=== PATIENT | male | born 1955 | race Caucasian/White ===

== ENCOUNTER 2017-07-15 22:43 | Emergency (ER) | payer OTHER ==
[~2017-07-15] VITALS: Ht 172.7 cm; Wt 93.0 kg
[2017-07-15 23:08] LABS: ABSOLUTE BASOPHILS 0.1 thou/uL (0.0-0.2); ABSOLUTE LYMPHOCYTES 3.8 thou/uL (0.8-5.3); ABSOLUTE MONOCYTES 0.6 thou/uL (0.0-1.2); ABSOLUTE NEUTROPHILS 7.7 thou/uL (1.6-8.1); BASOPHILS 0.5 %; EOSINOPHILS 0.4 %; HEMATOCRIT 41.3 % (42.0-52.0); HEMOGLOBIN 14.2 gm/dL (14.0-18.0); MCH 31.4 pg (26.0-34.0); MCHC 34.5 g/dL (28.0-37.0); MCV 91.1 fL (80.0-100.0); MONOCYTES 5.1 %; MPV 6.5 fl. (7.2-11.1); NUCLEATED RBCS 0 /100WBC; PLATELET COUNT* 268 thou/uL (150-400); RBC 4.53 mil/uL (4.50-6.00); RDW-CV 13.9 % (10.5-14.5); WBC 12.1 thou/uL (4.0-11.0)
[2017-07-15] MEDS ORDERED: EDARBYCLOR 40-1 EAC1 (23:10)
[2017-07-15] MEDS ORDERED: OMEPRAZOLE40 MG (23:11)
[2017-07-15] MEDS ORDERED: LIPITOR80 MG (23:11)
[2017-07-15] MEDS ORDERED: DEXAMETHASONE 22 M1 (23:12)
[2017-07-15] MEDS ORDERED: ZETIA10 MG (23:12)
[2017-07-15] MEDS ORDERED: KEPPRA 500 MG500 M1 PO (23:13)
[2017-07-15 23:21] LABS: APTT 23.1 Seconds (25.0-31.3); PROTIME 9.8 Seconds (9.20-11.50)
[2017-07-15 23:26] LABS: ANION GAP 11 mmol/L (7-16); BUN 14 mg/dL (7-18); CALCIUM 9.1 mg/dL (8.5-10.1); CHLORIDE 95 mmol/L (98-107); CO2 27 mmol/L (21-32); CREATININE 0.7 mg/dL (0.6-1.3); GLUCOSE 109 mg/dL (70-99); POTASSIUM 3.4 mmol/L (3.5-5.1); SODIUM 133 mmol/L (136-145)
[2017-07-15 23:32] LABS: ALBUMIN 4.2 g/dL (3.4-5.0); ALKALINE PHOSPHATASE 55 U/L (46-116); CHOLESTEROL 159 mg/dL (<200); HDL CHOLESTEROL 64 mg/dL (>40); LDL CHOLESTEROL 67 mg/dL (<100); SGOT 21 U/L (15-37); SGPT 64 U/L (30-65); TC:HDL 2.5 Ratio (Not establshd); TOTAL BILIRUBIN 0.6 mg/dL (<0.1-1.0); TOTAL PROTEIN 7.4 g/dL (6.4-8.2); TRIGLYCERIDE 144 mg/dL (<150); TROPONIN-I LEVEL <0.06 ng/mL (<0.06); VLDL 29 mg/dL (<40)
[2017-07-15 23:33] LABS: SERUM ASSESSMENT CLEAR
[2017-07-16 01:04] VITALS: BP 132/69
--- NOTE | 2017-07-16 15:21 | EKG ---
[place] [address] ELECTROCARDIOGRAM REPORT Name: LORETTA HAJI [id number] Admission: 07/15/17 Attend Phys: Discharge: 07/16/17 Date of : 55 Report #: [id number] THIS REPORT FOR: //name// [facility] ED Test Date: 2017-07-15 Test Time: 22:56:03 Pat Name: LORETTA HAJI Department: Room: Gender: Tool Maker Apprentice: GIA : 1955 Requested By: Michael Quezada Order Number: [id number] MD: Fabrizio Herron Measurements Intervals [place] Rate: 58 P: 33 MD: 193 QRS: -27 QRSD: 164 T: 119 QT: 462 QTc: 454 Interpretive Statements Sinus rhythm Left bundle branch block Baseline wander in lead(s) V3 No previous ECG available for comparison Electronically Signed On 07-16-2017 15:21:02 FIBER OPTICS SUPERVISOR by Fabrizio Herron [email or web address] <ELECTRONICALLY SIGNED> By: Fabrizio Herron MD, [facility] 07/16/17 1521 D: 02/2255 55 Fabrizio Herron MD, FACC /EPI
== END 2017-07-16 01:07 | disposition home or self-care (01) ==
LOC: M.ERS 22:43
PROVIDERS: Family Medicine
DX: F10.129 Alcohol abuse with intoxication, unspecified (principal); R55 Syncope and collapse; I10 Essential (primary) hypertension

== ENCOUNTER 2018-01-19 06:53 | Inpatient (IN) | payer OTHER ==
[~2018-01-19] VITALS: Ht 172.7 cm; Wt 89.8 kg
[~2018-01-19 06:53] MED LIST: DEXAMETHASONE 22 M1; EDARBYCLOR 40-1 EAC1; KEPPRA 500 MG500 M1 PO; LIPITOR80 MG; OMEPRAZOLE40 MG; ZETIA10 MG
[2018-01-19 06:54] VITALS: BP 143/104
[2018-01-19] MEDS ORDERED: VITAMIN B-12250 MCG PO (07:06)
[2018-01-19] MEDS ORDERED: FISH OIL 1,001000 M2 PO (07:07)
[2018-01-19] MEDS ORDERED: CENTRUM SILVER1 EAC4 PO (07:07)
[2018-01-19] MEDS ORDERED: COZAAR 25 MG TA25 M2 PO (07:12)
[2018-01-19] MEDS ORDERED: BIOTIN1000 MCG PO (07:12)
[2018-01-19] MEDS ORDERED: VIMPAT100 MG PO (07:12)
[2018-01-19] MEDS ORDERED: TEMOZOLOMIDE20 MG PO (07:13)
[2018-01-19] MEDS ORDERED: HYDROCHLOROTHIA25 M2 PO (07:13)
[2018-01-19] MEDS ORDERED: PREDNISONE 20 M20 M1 PO (07:13)
[2018-01-19] MEDS ORDERED: VITAMIN D5000 UNI1 PO (07:14)
[2018-01-19 07:23] LABS: ABSOLUTE BASOPHILS 0.1 thou/uL (0.0-0.2); ABSOLUTE EOSINOPHILS 0.1 thou/uL (0.0-0.7); ABSOLUTE LYMPHOCYTES 1.6 thou/uL (0.8-5.3); ABSOLUTE MONOCYTES 0.9 thou/uL (0.0-1.2); ABSOLUTE NEUTROPHILS 6.6 thou/uL (1.6-8.1); BASOPHILS 0.7 %; EOSINOPHILS 0.8 %; HEMATOCRIT 40.6 % (42.0-52.0); HEMOGLOBIN 14.6 gm/dL (14.0-18.0); LYMPHOCYTES 17.1 %; MCH 32.8 pg (26.0-34.0); MCV 91.3 fL (80.0-100.0); MONOCYTES 9.5 %; MPV 6.3 fl. (7.2-11.1); NUCLEATED RBCS 0 /100WBC; PLATELET COUNT* 241 thou/uL (150-400); POLYS 71.9 %; RBC 4.45 mil/uL (4.50-6.00); RDW-CV 14.1 % (10.5-14.5); WBC 9.2 thou/uL (4.0-11.0)
[2018-01-19 07:29] LABS: ANION GAP 5 mmol/L (7-16); BUN 14 mg/dL (7-18); CALCIUM 8.9 mg/dL (8.5-10.1); CHLORIDE 98 mmol/L (98-107); CO2 29 mmol/L (21-32); CREATININE 0.6 mg/dL (0.6-1.3); GLUCOSE 108 mg/dL (70-99); POTASSIUM 3.3 mmol/L (3.5-5.1); SODIUM 132 mmol/L (136-145)
[2018-01-19 07:39] LABS: ALBUMIN 3.1 g/dL (3.4-5.0); ALKALINE PHOSPHATASE 70 U/L (46-116); LIPASE 149 U/L (73-393); NT-PRO BRAIN NAT PEPTIDE 128 pg/mL (<300); SGOT 31 U/L (15-37); SGPT 77 U/L (30-65); TOTAL BILIRUBIN 0.6 mg/dL (<0.1-1.0); TOTAL PROTEIN 6.7 g/dL (6.4-8.2); TROPONIN-I LEVEL <0.06 ng/mL (<0.06)
[2018-01-19 07:41] LABS: APTT 28.5 Seconds (25.0-31.3); PROTIME 9.8 Seconds (9.20-11.50)
--- NOTE | 2018-01-19 09:53 | NUR ---
PT PROVIDED PT WITH DAILY AM HOME MEDS PER DR HAMILTON
[2018-01-19 10:47] VITALS: BP 144/101
[2018-01-19 11:00] VITALS: BP 153/87
[2018-01-19 12:38] VITALS: BP 119/77
[2018-01-19 16:00] VITALS: BP 114/82
[2018-01-19 17:54] LABS: POTASSIUM 3.8 mmol/L (3.5-5.1)
[2018-01-19 18:01] LABS: CALCIUM 8.7 mg/dL (8.5-10.1); CREATININE 0.7 mg/dL (0.6-1.3); MAGNESIUM 1.8 mg/dL (1.8-2.4)
--- NOTE | 2018-01-19 18:10 | NUR ---
PATIENT ARRIVED FROM ER THIS AM. PATIENT SETTLED TO ROOM, HISTORY, ASSESSMENT AND VITALS COMPLETED AND DOCUMENTED. PATIENT DENIES ANY PAIN AT THIS TIME. PATIENT HAS HEPARIN DRIP INFUSING FOR PE DIAGNOSIS. HEPARIN HELD FOR 1 HOUR AND RATE ADJUSTED PER SLIDING FOR PTT OF 140. REDRAW PTT AT 2330. PATIENT DENIES ANY SHORTNESS OF BREATH/TROUBLE BREATHING. PATIENT HAS GOOD APPETITE. CALL LIGHT WITHIN REACH. WILL CONTINUE TO MONITOR.
[2018-01-19 20:00] VITALS: BP 115/78
[2018-01-20 00:24] VITALS: BP 132/97
--- NOTE | 2018-01-20 01:18 | NUR ---
DOCTOR ANAIS NOTIFIED OF PATIENT'S PAIN WHEN TAKING DEEP BREATH, SEE ORDERS.
[2018-01-20 05:00] VITALS: BP 132/94
--- NOTE | 2018-01-20 06:05 | NUR ---
PATIENT TURNED Q [address] FALL PRE[address]UIONS IN PLACE, BED ALARM ON, CALL LIGHT WITH IN REACH, HOURLY ROUNDING OBSERVED. NO ACUTE CHANGES, PATIENT NOT SHOWING SIGNS OF DISTRESS.
[2018-01-20 08:45] VITALS: BP 131/82
--- NOTE | 2018-01-20 10:30 | NUR ---
ASSUMED CARE OF PT AFTER RECEIVING REPORT FROM NOC RN, PT IS ORIENTED TO SELF AND SITUATION, FORGETFUL. MATE RELIEF IN PLACE, SR. HEPARIN DRIP INFUSING ORDERED. PT C/O PAIN, GIVEN PRN MORPHINE ORDERED. ASSESSMENT COMPLETED, DOCUMENTED. MEDS PER JUL. FAMILY PRESENT IN ROOM. CALL LIGHT IN REACH.
--- NOTE | 2018-01-20 10:43 | EKG ---
[place] [address] ELECTROCARDIOGRAM REPORT Name: LORETTA HAJI Room: [address] IN M.R.#: [id number] Admission: 01/19/18 Attend Phys: Riky Bullard, Discharge: Date of : 55 Report #: [id number] THIS REPORT FOR: //name// [facility] ED Test Date: 2018-01-19 Test Time: 06:59:15 Pat Name: LORETTA HAJI Department: Room: [facility] Gender: M China Decorator: : 1955 Requested By: Gloria Freed Order Number: [id number] MD: Rashel Linares Measurements Intervals [place] Rate: 85 P: -4 MS: 178 QRS: -40 QRSD: 147 T: 127 QT: 394 QTc: 469 Interpretive Statements Sinus rhythm Left bundle branch block Compared to ECG 07/15/2017 22:56:03 No significant changes Electronically Signed On 01-20-2018 10:43:28 CDT by Rashel Linares [email or web address] <ELECTRONICALLY SIGNED> By: Rashel Linares MD, [facility] 01/20/18 [phone] Rashel Linares MD, [facility] /EPI
[2018-01-20 12:00] VITALS: BP 115/78
[2018-01-20 13:17] LABS: MAGNESIUM 1.6 mg/dL (1.8-2.4); POTASSIUM 3.6 mmol/L (3.5-5.1)
[2018-01-20 16:00] VITALS: BP 115/75
--- NOTE | 2018-01-20 18:50 | NUR ---
REC'D PHONE CALL FROM DR. FOLEY WHO STATES HE RECOMMENDS THAT THE PATIENT BE TRANSITIONED TO LOVENOX 1 MG/KG BID IF THE PATIENT'S CREATININE LEVELS WNL. DR. FOLEY STATES THAT IF THIS IS ACCEPTABLE TO THE HOSPITALIST TEAM, LOVENOX IS HIS RECOMMENDATION AND THAT TRANSITION CAN HAPPEN AT TIME OF DISCHARGE OR AT HOSPITALIST TEAM DISCRETION.
[2018-01-20 20:00] VITALS: BP 125/87
[2018-01-21] VITALS: BP 135/87
--- NOTE | 2018-01-21 03:14 | NUR ---
PT ALERT FORGETFUL. HEPARIN QTT RUNNING AT 890 UNITS/HR. NO PTT DONE 9/ AM. PTT ORDERED AND CHECKED WNL. NEXT PTT FOR THIS AM. AT BS INTERFERING WITH NURSING CARE. TELEMETRY SHOWS SR. TURN Q 2 HRS. WILL CONTINUE TO MONITOR.
[2018-01-21 04:39] VITALS: BP 141/87
[2018-01-21 04:52] LABS: ABSOLUTE EOSINOPHILS 0.1 thou/uL (0.0-0.7); ABSOLUTE LYMPHOCYTES 1.3 thou/uL (0.8-5.3); ABSOLUTE MONOCYTES 0.7 thou/uL (0.0-1.2); ABSOLUTE NEUTROPHILS 5.4 thou/uL (1.6-8.1); BASOPHILS 0.3 %; EOSINOPHILS 0.9 %; HEMOGLOBIN 12.7 gm/dL (14.0-18.0); LYMPHOCYTES 17.8 %; MCH 32.5 pg (26.0-34.0); MCHC 35.4 g/dL (28.0-37.0); MCV 91.8 fL (80.0-100.0); MONOCYTES 8.8 %; MPV 6.6 fl. (7.2-11.1); NUCLEATED RBCS 0 /100WBC; PLATELET COUNT* 245 thou/uL (150-400); POLYS 72.2 %; RBC 3.92 mil/uL (4.50-6.00); RDW-CV 14.2 % (10.5-14.5); WBC 7.4 thou/uL (4.0-11.0)
[2018-01-21 05:24] LABS: ALBUMIN 2.6 g/dL (3.4-5.0); CALCIUM 8.4 mg/dL (8.5-10.1); CREATININE 0.4 mg/dL (0.6-1.3); MAGNESIUM 1.9 mg/dL (1.8-2.4); PHOSPHORUS* 3.3 mg/dL (2.5-4.9); POTASSIUM 3.3 mmol/L (3.5-5.1); TOTAL BILIRUBIN 0.5 mg/dL (<0.1-1.0); TOTAL PROTEIN 5.5 g/dL (6.4-8.2)
--- NOTE | 2018-01-21 05:45 | NUR ---
AM PTT 45.0. HEPARIN QTT CHGD TO 10.5MLS/HR
[2018-01-21 11:54] VITALS: BP 126/82
--- NOTE | 2018-01-21 13:19 | 2DMMODE ---
[place] [address] 2 D/M-MODE ECHOCARDIOGRAM Name: LORETTA HAJI Room: [address] IN [facility]#: [id number] Admission: 01/19/18 Attend Phys: Riky Newman Discharge: Date of : 55 Date of Service: 01/21/18 1318 Report #: [id number] THIS REPORT FOR: //name// APPROVED REPORT Study performed: 01/21/2018 11:16:47 EXAM: Comprehensive 2D, Doppler, and color-flow Echocardiogram Patient Location: In-Patient Room #: [facility] Status: routine BSA: 1.95 HR: 71 bpm BP: 141/87 mmHg Rhythm: NSR Other Information Study Quality: Good Indications Pulmonary Embolism 2D Dimensions LVEF(%): 56.59 (>50%) IVSd: 15.55 (7-11mm) LVOT Diam: 20.94 (18-24mm) LVDd: 41.17 mm PWd: 12.84 (7-11mm) Ascending Ao: 33.23 (22-36mm) LVDs: 29.12 (25-40mm) Aortic Root: 36.26 mm Martinez's LVEF: 56.59 % Volumes Left Atrial Volume (Systole) LA ESV Index: 19.30 mL/m2 Aortic Valve AoV Peak Franco.: 1.42 m/s AO Peak Gr.: 8.11 mmHg LVOT Max P.78 mmHg AO Mean Gr.: 4.40 mmHg LVOT Mean P.28 mmHg LVOT Max V: 1.48 m/s AO V2 VTI: 21.16 cm LVOT Mean V: 0.94 m/s KAREN (VTI): 3.90 cm2 LVOT V1 VTI: 23.94 cm Mitral Valve E/A Ratio: 0.83 [place] [address] 2 D/M-MODE ECHOCARDIOGRAM Name: LORETTA HAJI Room: [address] IN .R.#: [id number] Admission: 01/19/18 Attend Phys: Riky Newman Discharge: Date of : 55 Date of Service: 01/21/18 1318 Report #: [id number] MV Decel. Time: 285.93 ms MV E Max Franco.: 0.47 m/s MV PHT: 82.92 ms MVA (PHT): 2.65 cm2 TDI E/Lateral E': 6.71 E/Medial E': 9.40 Medial E' Franco.: 0.05 m/s Lateral E' Franco.: 0.07 m/s Pulmonary Valve PV Peak Franco.: 1.04 m/s PV Peak Gr.: 4.34 mmHg Left Ventricle The left ventricle is normal size. There is normal LV segmental wall motion. Mild concentric left ventricular hypertrophy. Left ventricular systolic function is normal. The left ventricular ejection fraction is within the normal range. LVEF is 55-60%. Grade I - abnormal relaxation pattern. Right Ventricle The right ventricle is normal size. The right ventricular systolic function is normal. Atria The left atrium size is normal. The right atrium size is normal. Aortic Valve Mild aortic valve sclerosis. No aortic regurgitation is present. There is no aortic valvular stenosis. Mitral Valve The mitral valve is normal in structure. There is no mitral valve regurgitation noted. No evidence of mitral valve stenosis. Tricuspid Valve The tricuspid valve is normal in structure. Trace tricuspid regurgitation. Unable to assess PA pressure. Pulmonic Valve The pulmonary valve is normal in structure. Trace pulmonic regurgitation. Great Vessels The aortic root is normal in size. IVC [place] [address] 2 D/M-MODE ECHOCARDIOGRAM Name: LORETTA HAJI Room: [address]#: [id number] Admission: 01/19/18 Attend Phys: Riky Newman Discharge: Date of : 55 Date of Service: 01/21/18 1318 Report #: [id number] collapses with >50% inspiration Pericardium There is no pericardial effusion. <Conclusion> The left ventricle is normal size. Left ventricular systolic function is normal. The left ventricular ejection fraction is within the normal range. LVEF is 55-60%. Grade I - abnormal relaxation pattern. The right ventricle is normal size. The left atrium size is normal. Mild aortic valve sclerosis. No aortic regurgitation is present. There is no aortic valvular stenosis. The mitral valve is normal in structure. The tricuspid valve is normal in structure. IVC is normal in size and collapses with >50% inspiration There is no pericardial effusion. There is normal LV segmental wall motion. <ELECTRONICALLY SIGNED> By: Rashel Linares MD, FACC 01/21/18 1318 1318 Rashel Linares MD, FACC /INF
--- NOTE | 2018-01-21 16:52 | NUR ---
SW attempted to meet with pt, pt was busy at the time. Pt lives home with and also has a son. Pt follow with oncology at [facility] and pt nurse discussed pt will be on Lovenox. SW to continue to follow to complete assessment and assist with safe dc planning.
[2018-01-21 20:00] VITALS: BP 126/77
[2018-01-22] VITALS: BP 121/88
[2018-01-22 04:00] VITALS: BP 147/85
--- NOTE | 2018-01-22 05:11 | NUR ---
ASSUMED PT CARE AT 1930, AWAKE AND ALERT TO SELF ONLY. PT WAS VERY CONFUSED AND SCARED THIS SHIFT. PT DID NOT BELIEVE HE WAS IN THE HOSPITAL, HE THOUGHT IT WAS A JOKE HIS WAS PLAYING ON HIM. PT REFUSED TO TAKE MEDICATIONS BECAUSE HE THOUGHT I WAS TRYING TO POISON HIM, PT EVENTUALLY TOOK MEDICATIONS ONCE HIS SISTER ARRIVED. SHE HAD TO GIVE HIM THE MEDICATIONS INSTEAD OF THIS NURSE. PT DENIES ANY PAIN, STATES THAT HE DOES NOT WANT MORPHINE ANYMORE BECAUSE IT CONFUSES HIM. PT IS TRACING NSR ON THE MONITOR, ON 2L NC SATTING MID TO HIGH 90'S. BED IN LOW POSIRION, CALL LIGHT IN REACH, BED ALARM ON, YELLOW ARM BAND AND SOCKS IN PLACE.
[2018-01-22 08:26] LABS: ABSOLUTE EOSINOPHILS 0.1 thou/uL (0.0-0.7); ABSOLUTE LYMPHOCYTES 1.4 thou/uL (0.8-5.3); ABSOLUTE MONOCYTES 0.6 thou/uL (0.0-1.2); ABSOLUTE NEUTROPHILS 5.2 thou/uL (1.6-8.1); BASOPHILS 0.4 %; EOSINOPHILS 0.7 %; HEMATOCRIT 35.6 % (42.0-52.0); HEMOGLOBIN 12.8 gm/dL (14.0-18.0); LYMPHOCYTES 19.6 %; MCH 32.9 pg (26.0-34.0); MCHC 35.9 g/dL (28.0-37.0); MCV 91.5 fL (80.0-100.0); MONOCYTES 8.3 %; MPV 6.3 fl. (7.2-11.1); NUCLEATED RBCS 0 /100WBC; PLATELET COUNT* 279 thou/uL (150-400); RBC 3.89 mil/uL (4.50-6.00); RDW-CV 14.1 % (10.5-14.5); WBC 7.3 thou/uL (4.0-11.0)
[2018-01-22 08:47] LABS: ALBUMIN 2.4 g/dL (3.4-5.0); CALCIUM 8.8 mg/dL (8.5-10.1); CREATININE 0.4 mg/dL (0.6-1.3); POTASSIUM 3.7 mmol/L (3.5-5.1); TOTAL BILIRUBIN 0.4 mg/dL (<0.1-1.0); TOTAL PROTEIN 6.5 g/dL (6.4-8.2)
[2018-01-22 08:57] LABS: PREALBUMIN 14.6 mg/dL (18.0-35.7)
[2018-01-22 12:15] VITALS: BP 125/84
[2018-01-22 20:00] VITALS: BP 114/84
[2018-01-23] VITALS: BP 129/94
[2018-01-23 04:00] VITALS: BP 136/98
--- NOTE | 2018-01-23 05:18 | NUR ---
ASSUMED CARE OF PT AFTER REPORT AT 1930. PT A&O2-2 AND FORGETFUL. VSS. PHYSICAL ASSESSMENT COMPLETED AND CHARTED. PT ON O2 AT 2L WITH 94% O2 SAT. PT TRACING SR ON TELE. PT REPORTED UP WITH 2 ASSIST BUT REMAINS ON BED ALL NIGHT. DENIES ANY PAIN OR DISCOMFORT. TURNED EVERY 2 HOURS. HOURLY ROUNDING OBSERVED. CALL LIGHT WITHIN REACH. BED IN LOW POSITION.
--- NOTE | 2018-01-23 07:25 | NUR ---
CHANGE OF SHIFT BEDSIDE REPORT GIVEN PATIENT SEEN AT BEDSDIDE, IN BED ASLEEP ASSUMED PATIENT CARE
[2018-01-23 08:00] VITALS: BP 132/74
[2018-01-23 12:00] VITALS: BP 131/94
[2018-01-23] MEDS ORDERED: ENOXAPARIN80 MG/0.1 SUBQ (13:25)
[2018-01-23] MEDS ORDERED: OXYCODONE HCL 55 MG PO (13:34)
[2018-01-23 13:36] VITALS: BP 131/94
--- NOTE | 2018-01-23 13:44 | NUR ---
ORDERS NOTED FOR DC, ALSO DISCUSSED WITH DR PEREZ. THERAPY SAW PT AND MET WITH S/O JEIMY. HE WAS ABLE TO TRANSFER. MET WITH PT, DEJA AND PT'S SON/LORETTA TO DISCUSS DC PLAN. PT LIVES WITH JEIMY ON A [place]. HE IS FOLLOWED AT HOME BY [facility] FOR AND [facility]. THEY HAVE A W/C, WALKER AND BSC. JEIMY STATED THEY ARE TRYING TO GET A PLATFORM AT HOME FOR HIS WALKER BUT HH IS WORKING ON IT. CALLED IN SCRIPT FOR LOVENOX TO [facility] [address], NO [place]. THEY CAN FILL A PARTIAL SCRIPT TODAY AND SHOULD HAVE THE REST IN BY SAT. JEIMY STATED THAT THE NURSES HAD TAUGHT HER TO ADMINISTER AND SHE FEELS SHE CAN MANAGE. HH WILL F/U ALSO WITH HER. INSTRUCTED HER TO F/U WITH PT'S ONCOLOGIST FOR REFILLS NONE WERE WRITTEN AND PT WILL NEED TO CONTINUE IT FOR SOME TIME. AWAIT RT O2 SAT EVALS. CALLED AND FAXED DC ORDER TO [facility] AND [facility]. JEIMY AND SON STATED THEY COULD MANAGE GETTING PT HOME. DID VOICE CONCERN ABOUT MANAGING AT HOME BUT FELT THAT THEY HAD BEEN DOING IT PRIOR AND CAN CONTINUE TO MANAGE. DID GIVE JEIMY LIST OF SNF FACILITIES IN PT'S NETWORK IN CASE HE 'FAILS' AT HOME WITH HH. JEIMY AWARE THAT HH COULD ASSIST WITH THAT TRANSITION IF NEEDED.
--- NOTE | 2018-01-23 15:15 | NUR ---
PATIENT DISCHARGED TO HOME ALL DISCHARGE INFORMATION GIVEN AND ACKNOWLEDGED IV REMOVED AND HEART MONITOR REMOVED AND PERSONAL BELONGINGS RETURNED ASSISTED TO AND OUT VIA GOOD CONDITION TO HOME
--- NOTE | 2018-01-23 18:30 | NUR ---
PATIENTS HOME MEDICATION (TEMOZOLOMIDE) FOUND IN PATIENT ACCESS BIN MULTIPLE ATTEMPTS TO REACH CONTACT NUMBER ON CHART-NO ANSWER MEDICATION SENT TO PHARMACY AND NOTIFIED CHARGE NURSE
--- NOTE | 2018-01-24 09:21 | CON ---
[address] [address] CONSULTATION Name: LORETTA HAJI Room: [address] IN .R.#: [id number] Admission: 01/19/18 Attend Phys: Riky Bullard, Discharge: 01/23/18 Date of : 55 Report #: [id number] THIS REPORT FOR: //name// CC: Riky Magdaleno DATE OF SERVICE: 01/20/2018 REQUESTING PHYSICIAN: Hospitalist Service. INDICATION FOR CONSULTATION: Extensive pulmonary emboli with a history of a brain tumor. HISTORY OF PRESENT ILLNESS: This is a 62-year-old gentleman with past medical history as mentioned below. This does include a history of grade 4 glioblastoma for which he had surgery towards the beginning of this year. The tumor was reported to have involved the right parietal area. The patient is a lifetime nonsmoker. He has a history of alcohol intake in the past, but not recent. The patient is now admitted with chest pain. He says this started in the last 1-2 days. It was in the posterior aspect of his chest. He says that his back also hurts. This is associated with respiration and coughing. He reports this pain as being severe up to 10/10. He also reports being short of breath for the last 1-2 days as well. He at this time is fully awake; however, is providing only a limited history, does not report any increase in cough. His family reports that he does sit up when he is eating. There is no sputum production. There is no pain towards the front of his chest. There is no runny nose or sore throat. There has been a significant increase in swelling of left lower extremity over the last couple of weeks. He has had some cough pain on the left side as well. REVIEW OF SYSTEMS: The patient answers in the negative for 12 questions for review of systems except as mentioned above. 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 He has had surgery in May of this year for this, hypertension. The patient has been on seizure medications; it is not known to me as to whether this is prophylactic or whether he actually had seizures. The patient is noted to be on 15 mg of prednisone daily and on admission. SOCIAL HISTORY: Reported to have had a history of heavy alcohol intake in the past at some point. This, however, is not recent. The patient's family reports that he has not had any significant amount of alcohol this year. No known history of smoking. The patient is reported to be a lifetime nonsmoker. No known history [place] [address] CONSULTATION Name: LORETTA HAJI Room: [address]#: [id number] Admission: 01/19/18 Attend Phys: Riky Bullard, Discharge: 01/23/18 Date of : 55 Report #: [id number] CURRENT MEDICATIONS: List in [facility] reviewed. HOME MEDICATIONS: List also in [facility] reviewed. FAMILY HISTORY: There is no pertinent family history. PHYSICAL EXAMINATION: GENERAL: He is fully awake; however, provides only a limited history. VITAL SIGNS: He has a pulse of 72 and a blood pressure of 131/82. He is not on supplemental oxygen. He has been saturating in the high 90s, last recorded 97%; pulse 72, blood pressure 131/82, respiratory rate 18. Afebrile with a temperature of 37.1. He did have a low grade elevation in temperature up to 37.6 earlier today. HEENT: Head is normocephalic. There is a surgical scar on the right side. There is no throat erythema, narrow airway around Mallampati 4. NECK: Does not show raised JVP. CHEST: Clear to auscultation. HEART: Regular, no murmur. ABDOMEN: Soft, nontender. EXTREMITIES: Lower extremities show 2+ edema on the left side. There is no edema on the right side. There is calf tenderness on the left side. There are no significant skin changes noted. LABORATORY DATA: The patient's CTA chest, which does show extensive bilateral pulmonary emboli in [facility] reviewed. I reviewed both the films as well as the report. There are also bilateral infiltrates, more on the right side than the left noted, infiltrative changes do appear to be more than would be expected from atelectasis and scarring alone. The patient's CBC as well as chemistries performed yesterday in [facility] reviewed. Coagulation studies also in [facility] reviewed. ASSESSMENT AND PLAN: 1. Extensive bilateral pulmonary emboli/left calf swelling, likely the patient had a deep venous thrombosis in the left leg and this is the source of his pulmonary emboli. Anticoagulation is the most effective therapy for his pulmonary emboli; however, the patient is high risk for anticoagulation considering his history of an intracranial malignancy. The patient currently is on IV heparin. We will await further recommendations from the Neurology and Hematology Service who are on the case. We will also do venous Dopplers and check a 2D echo and then decide as to whether there is an indication to place an IVC filter. I would defer to the Hematology Service regarding whether hypercoagulability testing is performed. 2. Pulmonary infiltrates. These are more significant than I would expect from atelectasis and scarring alone. Therefore, I went ahead and ordered ceftriaxone as well as ordered a sputum culture and a nasal swab for methicillin-resistant Staphylococcus aureus. [address] [address] CONSULTATION Name: LORETTA HAJI Room: [address] IN .R.#: [id number] Admission: 01/19/18 Attend Phys: Riky Bullard, Discharge: 01/23/18 Date of : 55 Report #: [id number] 3. Chest pain. See discussion above. 4. Glioblastoma grade 4 in the right parietal region. Oncology and Neurology Services are on consult. 5. High aspiration risk. Recommend aspiration precautions. 6. Prednisone use upon admission. The patient may require stress doses of steroids in case his clinical condition deteriorates. <ELECTRONICALLY SIGNED> By: Wilbert Tsai MD 01/24/18 0921 1233 1522Abob Kam MD /nt
== END 2018-01-23 15:15 | disposition home health service (06) | DRG 177 ==
LOC: M.ERS 06:53 → M.2W 09:21 → M.TBA-ER 09:21 → M.2W 10:56
PROVIDERS: Internal Medicine; Internal Medicine Critical Care Medicine; Personal Emergency Response Attendant; ADMIT Family Medicine
DX: J15.6 Pneumonia due to other Gram-negative bacteria (principal); I26.99 Other pulmonary embolism without acute cor pulmonale; J96.01 Acute respiratory failure with hypoxia; G93.40 Encephalopathy, unspecified; I82.412 Acute embolism and thrombosis of left femoral vein; J98.11 Atelectasis; D68.59 Other primary thrombophilia; I82.432 Acute embolism and thrombosis of left popliteal vein; C71.3 Malignant neoplasm of parietal lobe; C71.2 Malignant neoplasm of temporal lobe; K59.00 Constipation, unspecified; G40.909 Epilepsy, unspecified, not intractable, without status epilepticus; I10 Essential (primary) hypertension; M54.9 Dorsalgia, unspecified; Z79.899 Other long term (current) drug therapy; Z82.49 Family history of ischemic heart disease and other diseases of the circulatory system

== ENCOUNTER 2018-05-14 17:31 | Emergency (ER) | payer OTHER ==
[~2018-05-14] VITALS: Ht 167.6 cm; Wt 77.1 kg
[~2018-05-14 17:31] MED LIST changes: +BIOTIN1000 MCG PO; +CENTRUM SILVER1 EAC4 PO; +COZAAR 25 MG TA25 M2 PO; +ENOXAPARIN80 MG/0.1 SUBQ; +FISH OIL 1,001000 M2 PO; +HYDROCHLOROTHIA25 M2 PO; +OXYCODONE HCL 55 MG PO; +PREDNISONE 20 M20 M1 PO; +TEMOZOLOMIDE20 MG PO; +VIMPAT100 MG PO; +VITAMIN B-12250 MCG PO; +VITAMIN D5000 UNI1 PO
[2018-05-14] MEDS ORDERED: ELIQUIS5 MG PO (17:39)
[2018-05-14] MEDS ORDERED: [UNRECOGNIZED DRUG - OTHER] (17:40)
[2018-05-14] MEDS ORDERED: FRANKINSENSE (17:40)
[2018-05-14] MEDS ORDERED: CBD OIL (17:41)
[2018-05-14 18:23] LABS: ABSOLUTE EOSINOPHILS 0.1 thou/uL (0.0-0.7); ABSOLUTE LYMPHOCYTES 1.8 thou/uL (0.8-5.3); ABSOLUTE MONOCYTES 0.4 thou/uL (0.0-1.2); ABSOLUTE NEUTROPHILS 6.2 thou/uL (1.6-8.1); BASOPHILS 0.4 %; EOSINOPHILS 1.1 %; HEMATOCRIT 45.1 % (42.0-52.0); HEMOGLOBIN 15.8 gm/dL (14.0-18.0); MCH 32.1 pg (26.0-34.0); MCV 91.6 fL (80.0-100.0); MONOCYTES 5.1 %; MPV 6.5 fl. (7.2-11.1); NUCLEATED RBCS 0 /100WBC; PLATELET COUNT* 315 thou/uL (150-400); POLYS 72.4 %; RBC 4.92 mil/uL (4.50-6.00); RDW-CV 14.4 % (10.5-14.5); WBC 8.6 thou/uL (4.0-11.0)
[2018-05-14 18:30] LABS: ANION GAP 8 mmol/L (7-16); BUN 11 mg/dL (7-18); CALCIUM 9.4 mg/dL (8.5-10.1); CHLORIDE 98 mmol/L (98-107); CO2 32 mmol/L (21-32); CREATININE 0.5 mg/dL (0.6-1.3); GLUCOSE 102 mg/dL (70-99); POTASSIUM 3.8 mmol/L (3.5-5.1); SODIUM 138 mmol/L (136-145)
[2018-05-14 18:35] LABS: ALBUMIN 3.7 g/dL (3.4-5.0); ALKALINE PHOSPHATASE 65 U/L (46-116); SGOT 21 U/L (15-37); SGPT 49 U/L (30-65); TOTAL BILIRUBIN 0.3 mg/dL (<0.1-1.0); TOTAL PROTEIN 7.2 g/dL (6.4-8.2); TROPONIN-I LEVEL <0.06 ng/mL (<0.06)
[2018-05-14 20:11] VITALS: BP 135/90
--- NOTE | 2018-05-15 10:32 | EKG ---
[place] [address] ELECTROCARDIOGRAM REPORT Name: LORETTA HAJI [id number] Admission: 05/14/18 Attend Phys: Discharge: 05/14/18 Date of : 55 Report #: [id number] THIS REPORT FOR: //name// [facility] ED Test Date: 2018-05-14 Test Time: 18:21:11 Pat Name: LORETTA HAJI Department: Room: Gender: Manager Summer: DIVINEOSCAR : 1955 Requested By: Kady Bourgeois Order Number: [id number] MD: Rc Reyna Measurements Intervals [place] Rate: 64 P: 0 MI: 179 QRS: -41 QRSD: 151 T: 106 QT: 447 QTc: 462 Interpretive Statements Sinus rhythm left axis LBBB Baseline wander in lead(s) V3,V4 Compared to ECG 01/19/2018 06:59:15 no change Electronically Signed On 05-15-2018 10:32:46 SITE PROMOTION AGENT by Rc Reyna [email or web address] <ELECTRONICALLY SIGNED> By: Rc Reyna MD, [facility] 05/15/18 1032 20 20 Rc Reyna MD, FACC /EPI
== END 2018-05-14 20:12 | disposition home or self-care (01) ==
LOC: M.ERS 17:31
PROVIDERS: Nurse Practitioner Family
DX: R22.42 Localized swelling, mass and lump, left lower limb (principal); M54.9 Dorsalgia, unspecified; I10 Essential (primary) hypertension; Z85.841 Personal history of malignant neoplasm of brain; Z86.718 Personal history of other venous thrombosis and embolism; Z86.711 Personal history of pulmonary embolism

== ENCOUNTER 2018-07-10 14:57 | Inpatient (IN) | payer BC ==
[~2018-07-10] VITALS: Ht 172.7 cm; Wt 77.1 kg
[~2018-07-10 14:57] MED LIST changes: +CBD OIL; +ELIQUIS5 MG PO; +FRANKINSENSE PO; +MELATONIN5 M1 PO; +PREDNISONE 20 M20 MG PO; +[UNRECOGNIZED DRUG - OTHER] PO
[2018-07-10 17:30] VITALS: BP 141/75
[2018-07-10 19:55] VITALS: BP 127/86
[2018-07-11 05:00] LABS: HEMATOCRIT 38.7 % (42.0-52.0); HEMOGLOBIN 13.6 gm/dL (14.0-18.0); MCH 31.8 pg (26.0-34.0); MCHC 35.2 g/dL (28.0-37.0); MCV 90.4 fL (80.0-100.0); MPV 7.1 fl. (7.2-11.1); RBC 4.28 mil/uL (4.50-6.00); RDW-CV 13.7 % (10.5-14.5)
[2018-07-11 05:35] LABS: CALCIUM 9.1 mg/dL (8.5-10.1); CREATININE 0.5 mg/dL (0.6-1.3); POTASSIUM 3.6 mmol/L (3.5-5.1)
[2018-07-11 07:00] VITALS: BP 146/89
[2018-07-11 20:00] VITALS: BP 107/71
[2018-07-12 08:00] VITALS: BP 125/79
[2018-07-12 20:48] VITALS: BP 94/62
[2018-07-13 08:33] VITALS: BP 140/98
[2018-07-13 19:45] VITALS: BP 107/66
[2018-07-14 08:09] VITALS: BP 152/92
[2018-07-14 19:45] VITALS: BP 108/76
[2018-07-14 21:26] VITALS: BP 136/64
[2018-07-15 07:30] VITALS: BP 126/77
[2018-07-15 20:00] VITALS: BP 90/62
[2018-07-15 20:30] VITALS: BP 90/62
[2018-07-15 22:05] VITALS: BP 121/79
[2018-07-16 07:30] VITALS: BP 147/98
[2018-07-16 20:27] VITALS: BP 107/80
[2018-07-17 04:51] LABS: HEMATOCRIT 37.9 % (42.0-52.0); HEMOGLOBIN 13.3 gm/dL (14.0-18.0); MCH 32.2 pg (26.0-34.0); MCHC 35.2 g/dL (28.0-37.0); MCV 91.7 fL (80.0-100.0); MPV 6.9 fl. (7.2-11.1); RBC 4.13 mil/uL (4.50-6.00); RDW-CV 14.2 % (10.5-14.5); WBC 7.6 thou/uL (4.0-11.0)
[2018-07-17 05:06] LABS: ALBUMIN 2.8 g/dL (3.4-5.0); CALCIUM 8.8 mg/dL (8.5-10.1); CREATININE 0.7 mg/dL (0.6-1.3); POTASSIUM 3.8 mmol/L (3.5-5.1); TOTAL BILIRUBIN 0.3 mg/dL (<0.1-1.0); TOTAL PROTEIN 5.2 g/dL (6.4-8.2)
[2018-07-17 07:45] VITALS: BP 112/78
[2018-07-17 19:54] VITALS: BP 108/76
[2018-07-18 08:14] VITALS: BP 133/84
[2018-07-18 19:50] VITALS: BP 100/64
[2018-07-19 07:00] VITALS: BP 130/86
[2018-07-19 19:54] VITALS: BP 133/85
[2018-07-20 08:24] VITALS: BP 128/81
[2018-07-20 20:00] VITALS: BP 117/84
[2018-07-21 08:35] VITALS: BP 149/86
[2018-07-21 19:54] VITALS: BP 105/70
[2018-07-22 07:54] VITALS: BP 108/84
[2018-07-22 19:54] VITALS: BP 121/84
[2018-07-23 08:15] VITALS: BP 141/82
[2018-07-23 16:26] LABS: URINE BILIRUBIN NEGATIVE (Negative); URINE BLOOD NEGATIVE (Negative); URINE CLARITY CLEAR; URINE COLOR YELLOW; URINE GLUCOSE-RANDOM NEGATIVE (Negative); URINE KETONES NEGATIVE (Negative); URINE LEUKOCYTES-REFLEX NEGATIVE (Negative); URINE NITRITE-REFLEX NEGATIVE (Negative); URINE PROTEIN NEGATIVE (Negative); URINE SPECIFIC GRAVITY 1.025 (1.005-1.030); URINE UROBILINOGEN 0.2 E.U./dl (0.2-1.0)
[2018-07-23 19:50] VITALS: BP 115/74
[2018-07-24 08:00] VITALS: BP 143/91
[2018-07-24 20:00] VITALS: BP 100/74
[2018-07-25 08:00] VITALS: BP 139/74
[2018-07-25 20:00] VITALS: BP 134/82
[2018-07-26 09:00] VITALS: BP 127/89
[2018-07-26 20:00] VITALS: BP 119/87
[2018-07-27 07:30] VITALS: BP 136/87
[2018-07-27 20:00] VITALS: BP 139/85
[2018-07-28 08:00] VITALS: BP 133/74
--- NOTE | 2018-07-28 12:22 | PLAN ---
[facility] [address] [place] [address] REHAB UNIT PLAN OF CARE Name: LORETTA HAJI Mook Room: [facility] IN M.R.#: [id number] Admission: 07/10/18 Attend Phys: Coco Guadarrama DO Discharge: Date of : 55 Report #: [id number] THIS REPORT FOR: //name// CC: Coco Guadarrama Stephen Magdaleno This is a 62-year-old male with primary diagnosis of glioblastoma multiforme who was hospitalized at [facility] for increased Weakness, debility, alterations in activities of daily living. He has not been in acute inpatient rehabilitation in the past. He does have a primary caregiver, his , who is able to stay with him 24 hours 7 days a week. They do live in the basement of 3 generation farm home. Previous level of function was modified independent with activities of daily living to minimum assistance. Current level of function is kkxgies-wo-kibmlkyb assistance of 1-2 depending on therapy, activity and time of day. Estimated length of stay is 12-14 days with discharge disposition to the home setting where he has an accessible house and caregiver as stated above. MEDICAL PROGNOSIS: Fair. REHABILITATION PROGNOSIS: Fair. He does have a left upper hemiparesis, which is flaccid and some left lower extremity hemiparesis and weakness as well. Physical therapy will see the patient 60-90 minutes per day, 5 days per week, working on upper and lower body strength, balance, coordination, navigation and transfers. Occupational therapy will work with the patient 60-90 minutes per day, 5 days per week, working on upper and lower body strength, balance, coordination, navigation, bathing, dressing, and toileting. Speech and language pathology will work with the patient 30-90 minutes per day, 5 days per week, working on cognition, expression, social interaction and memory. This will be 30-90 minutes per day, 5 days per week. Overall, Therapies, Case management and overall team will work on durable medical equipment needs and caregiver training including slide board, potential mobility issues with an electric chair, hospital bed and Roho cushion, those are all in the process and will be updated as needed. This is an overall plan of care, may change from time to time, we will team weekly and make changes to plan of care as needed. <ELECTRONICALLY SIGNED> By: Coco Guadarrama DO 07/28/18 1222 1039 [id number] Guadarrama DO /nt
[2018-07-28 20:00] VITALS: BP 112/73
[2018-07-29 07:30] VITALS: BP 143/99
[2018-07-29 18:32] VITALS: BP 111/83
[2018-07-29 20:00] VITALS: BP 110/75
[2018-07-30 07:54] VITALS: BP 137/95
[2018-07-30 19:25] VITALS: BP 120/83
[2018-07-30] MEDS ORDERED: PREDNISONE 5 MG5 M1 PO (22:22)
[2018-07-31 04:06] LABS: HEMATOCRIT 38.1 % (42.0-52.0); HEMOGLOBIN 13.4 gm/dL (14.0-18.0); MCH 32.4 pg (26.0-34.0); MCHC 35.3 g/dL (28.0-37.0); MCV 91.9 fL (80.0-100.0); MPV 6.8 fl. (7.2-11.1); RBC 4.14 mil/uL (4.50-6.00); RDW-CV 13.9 % (10.5-14.5); WBC 4.9 thou/uL (4.0-11.0)
[2018-07-31 04:24] LABS: CALCIUM 8.9 mg/dL (8.5-10.1); CREATININE 0.6 mg/dL (0.6-1.3); POTASSIUM 3.2 mmol/L (3.5-5.1)
[2018-07-31 08:00] VITALS: BP 128/76
[2018-07-31 20:00] VITALS: BP 122/78
[2018-07-31 20:35] VITALS: BP 135/88
[2018-08-01 08:00] VITALS: BP 135/103
[2018-08-01 11:00] VITALS: BP 128/88
[2018-08-01 20:00] VITALS: BP 122/82
[2018-08-02 07:30] VITALS: BP 141/88
[2018-08-02] MEDS ORDERED: CENTRUM SILVER1 EAC4 PO (15:35)
[2018-08-02] MEDS ORDERED: KLOR-CON 1010 MEQ PO (15:36)
[2018-08-02] MEDS ORDERED: TYLENOL325 MG PO (15:38)
[2018-08-02 16:44] VITALS: BP 141/88
== END 2018-08-02 19:00 | disposition home health service (06) | DRG 54 ==
LOC: M.REH 14:57
PROVIDERS: Family Medicine; ADMIT Physical Medicine & Rehabilitation
DX: C71.9 Malignant neoplasm of brain, unspecified (principal); G93.41 Metabolic encephalopathy; G81.94 Hemiplegia, unspecified affecting left nondominant side; F32.9 Major depressive disorder, single episode, unspecified; G31.84 Mild cognitive impairment of uncertain or unknown etiology